=== PATIENT | male | born 1960 | race Hispanic/Latino ===

== ENCOUNTER 2018-11-09 10:21 | Day surgery (SDC) | payer OTHER ==
[~2018-11-09] VITALS: Ht 172.7 cm; Wt 90.7 kg
[~2018-11-09 10:21] MED LIST: LIDOCAINE HCL 1% 20 ML VIAL ONE; PROPOFOL 1000 MG/100 ML 100 ML IV ONE; SODIUM CHLORIDE 0.9% 1000ML 1,000 ML IV ONE
[2018-11-09 12:50] VITALS: BP 160/83
[2018-11-09] MEDS ORDERED: PROPOFOL 10 MG/ML 20ML VIAL IV ONE (12:54)
[2018-11-09] MEDS ORDERED: LIDOCAINE HCL-MPF 2% 5ML VIAL ONE (12:55)
[2018-11-09 13:33] VITALS: BP 115/74
[2018-11-09 13:38] VITALS: BP 130/88
[2018-11-09 13:43] VITALS: BP 135/88
[2018-11-09 13:48] VITALS: BP 132/79
--- NOTE | 2018-11-09 14:10 | NUR ---
PATIENT ASSISTED UP TO CHAIR AND ASSISTED TO CHANGE INTO HIS CLOTHES. PT SHOWS NO SIGNS OF DISTRESS OR DISCOMFORT. PT STATED BEING VERY SATISFIED WITH OUR CARE.
[2018-11-09 14:15] VITALS: BP 138/76
--- NOTE | 2018-11-09 14:15 | NUR ---
PATIENT DISCHARGED VIA WHEELCHAIR AAOX3 IN NO DISTRESS, PT LEFT WITH HIS SISTER AND AND HIS BROTHER IN LAW.
== END 2018-11-09 14:15 | disposition home or self-care (01) ==
LOC: ENDO 10:21 → DAH 10:21 → ENDO 14:15
PROVIDERS: ATTEND Internal Medicine Gastroenterology
DX: Z12.11 Encounter for screening for malignant neoplasm of colon (principal); K64.0 First degree hemorrhoids; Z80.0 Family history of malignant neoplasm of digestive organs; Z79.899 Other long term (current) drug therapy; I11.0 Hypertensive heart disease with heart failure; I50.9 Heart failure, unspecified; E11.9 Type 2 diabetes mellitus without complications; Z86.73 Personal history of transient ischemic attack (TIA), and cerebral infarction without residual deficits; Z68.33 Body mass index [BMI] 33.0-33.9, adult; Z79.84 Long term (current) use of oral hypoglycemic drugs; Z79.82 Long term (current) use of aspirin; E78.2 Mixed hyperlipidemia
CPT/HCPCS: 45380; 45385; 82948 ×2; 93005; A4606; J2704 ×2; J3490; J7030

== ENCOUNTER → 2021-11-04 | Outpatient (CLI) | payer MEDICARE | END | disposition home or self-care (01) | LOC: RAH 16:04 | PROVIDERS: ATTEND Physician Assistant | DX: M25.511 Pain in right shoulder (principal) | CPT/HCPCS: 73030 ==